=== PATIENT | female | born 1990 | race Two or more races ===

== ENCOUNTER 2018-01-14 10:01 | Emergency (ER) | payer MEDICAID ==
[~2018-01-14] VITALS: Ht 157.5 cm; Wt 49.9 kg
[2018-01-14 10:11] VITALS: BP 131/85
[2018-01-14] MEDS ORDERED: DEXAMETHASONE 1 MG TABLET ONE (10:24)
[2018-01-14] MEDS ORDERED: DEXAMETHASONE 4 MG TABLET ONE (10:24)
[2018-01-14] MEDS ORDERED: DEXAMETHASONE 1 MG TABLET PO ONE (10:30)
== END 2018-01-14 10:37 | disposition home or self-care (01) ==
LOC: ER 10:04
DX: J02.9 Acute pharyngitis, unspecified (principal); F17.210 Nicotine dependence, cigarettes, uncomplicated
CPT/HCPCS: A4606; J8540; Z7610

== ENCOUNTER 2018-09-23 00:40 | Emergency (ER) | payer SELFPAY ==
[~2018-09-23] VITALS: Ht 149.9 cm; Wt 55.3 kg
[2018-09-23] MEDS ORDERED: EPINEPHRINE (1:1000) 1 MG/ML AMPUL ONE (01:09)
[2018-09-23] MEDS ORDERED: diphenhydrAMINE HCL 50 MG/ML VIAL ONE (01:09)
[2018-09-23] MEDS ORDERED: predniSONE 20 MG TABLET ONE ×2 (01:10)
[2018-09-23 01:27] VITALS: BP 124/84
--- NOTE | 2018-09-23 01:29 | NUR ---
MEDS GIVEN WILL CONTINUE TO MONITOR.
[2018-09-23] MEDS ORDERED: predniSONE 10 MG TABLET PO ONE (01:30)
[2018-09-23] MEDS ORDERED: diphenhydrAMINE HCL 50 MG/ML VIAL IM ONE (01:30)
[2018-09-23] MEDS ORDERED: EPINEPHRINE (1:1000) MDV 30 MG/30ML VIAL SUBCUT ONE (01:30)
== END 2018-09-23 02:11 | disposition home or self-care (01) ==
LOC: ER 00:42
DX: L50.9 Urticaria, unspecified (principal)
CPT/HCPCS: 96372 ×2; 99283; A4606; J0171 ×2; J1200; J7512 ×2